=== PATIENT | female | born 1995 | race African-American/Black ===

== ENCOUNTER 2021-05-03 19:30 | Emergency (ER) | payer OTHER ==
[2021-05-03 20:17] LABS: HEMOGLOBIN 12.7 gm/dl (12.3-15.3); RED BLOOD COUNT 4.38 M/UL (4.00-5.10); WHITE BLOOD COUNT 18.2 K/UL (4.5-11.0)
[2021-05-03 20:28] LABS: BUN/CREATININE RATIO 17 (0-10)
[2021-05-03] MEDS ORDERED: CEPHALEXIN500 M1 PO (22:04)
== END 2021-05-04 | disposition home or self-care (01) ==
LOC: ER1 19:30
PROVIDERS: Emergency Medicine; Preventive Medicine Occupational Medicine
DX: O98.511 Other viral diseases complicating pregnancy, first trimester (principal); U07.1 COVID-19; O23.41 Unspecified infection of urinary tract in pregnancy, first trimester; O9A.211 Injury, poisoning and certain other consequences of external causes complicating pregnancy, first trimester; S76.912A Strain of unspecified muscles, fascia and tendons at thigh level, left thigh, initial encounter; V49.9XXA Car occupant (driver) (passenger) injured in unspecified traffic accident, initial encounter; Z3A.12 12 weeks gestation of pregnancy
CPT/HCPCS: 71045; 73552; 73590; 73610; 76817; 80053; 80307; 81001; 83605; 83690; 84702; 85025; 85610; 85730; 86850; 86900; 86901; 96374; 96375; 99284; G0480; J0696; J2270; J2405; J7030; U0002